=== PATIENT | female | born 1975 | race Hispanic/Latino ===

== ENCOUNTER 2017-01-19 20:39 | Emergency (ER) | payer SELFPAY ==
[2017-01-19] MEDS ORDERED: Ondansetron ODT 4 MG TAB ONE (20:56)
[2017-01-19] MEDS ORDERED: Ketorolac Tromethamine 60 MG/2 ML VIAL ONE (20:56)
[2017-01-19] MEDS ORDERED: Meclizine HCl 25 MG TAB ONE (20:56)
== END 2017-01-19 21:33 | disposition home or self-care (01) ==
LOC: NAV ERS 20:39
DX: R51 Headache (principal); R11.2 Nausea with vomiting, unspecified; F41.9 Anxiety disorder, unspecified; F32.9 Major depressive disorder, single episode, unspecified
CPT/HCPCS: 93005; 96372; J1885; Q0162

== ENCOUNTER 2019-04-27 20:03 | Emergency (ER) | payer SELFPAY ==
[2019-04-27] MEDS ORDERED: Ondansetron ODT 4 MG TAB ONE (20:41)
[2019-04-27] MEDS ORDERED: Sulfameth/Trimethoprim DS 800-160mg TAB ONE (20:41)
== END 2019-04-27 20:56 | disposition home or self-care (01) ==
LOC: NAV ERS 20:03
DX: R05 Cough (principal); R11.10 Vomiting, unspecified
CPT/HCPCS: 99283; Q0162

== ENCOUNTER 2019-11-16 08:01 | Emergency (ER) | payer SELFPAY ==
[2019-11-16] MEDS ORDERED: Ibuprofen 800 MG TAB ONE (08:56)
[2019-11-16 09:10] LABS: Bilirubin Negative (Negative); Blood, Urine Negative (Negative); Clarity Clear (Clear); Glucose, Urine (Dipstick) Negative (Negative); Ketone, Urine Negative (Negative); Leukocyte Negative (Negative); Nitrite Negative (Negative); Protein, Urine (Dipstick) Negative (Neg-Trace); Urobilinogen 0.2 mg/dL (Less than 2)
[2019-11-16 09:11] LABS: BHCG - Serum Negative (NEGATIVE); Pregs Control Bar Appear? YES (CONTROL BAR)
[2019-11-16 09:12] LABS: #Basophils 0.1 thou/uL (0.0-0.2); #Eosinphils 0.1 thou/uL (0.0-0.7); #Lymphocytes 1.2 thou/uL (1.20-3.40); #Monocytes 0.5 thou/uL (0.11-0.59); %Basophils 1.1 % (0.0-1.0); %Eosinophils 1.6 % (0.0-10.0); %Lymphocytes 17.2 % (21.0-51.0); %Monocytes 7.6 % (0.0-10.0); %Neutrophils 72.6 % (42.0-75.0); Hemoglobin 13.2 g/dL (12.0-16.0); Mean Corpuscular HGB CONC 30.2 g/dL (32.0-36.0); Mean Corpuscular Hemoglobin 29.1 pg (27.0-31.0); Mean Corpuscular Volume 96.5 fL (78.0-98.0); Mean Platelet Volume 13.8 fL (7.4-10.4); Platelet Count 122 thou/uL (130-400); RBC Distribution Width 13.7 % (11.5-14.5); Red Blood Cell (RBC) Count 4.53 mill/uL (4.20-5.40); White Blood Cell (WBC) Count 6.9 thou/uL (4.8-10.8)
[2019-11-17 21:29] LABS: Chlamydia by PCR Not Detected (NotDetected); GC by PCR Not Detected (NotDetected)
== END 2019-11-16 09:55 | disposition home or self-care (01) ==
LOC: NAV ERS 08:01 → MERGE 08:01 → NAV ERS 09:55
DX: N93.9 Abnormal uterine and vaginal bleeding, unspecified (principal); M54.5 Low back pain; Z87.42 Personal history of other diseases of the female genital tract
CPT/HCPCS: 81003; 84703; 85025; 87480; 87491; 87510; 87591; 87660; 99284